=== PATIENT | female | born 1980 | race Hispanic/Latino ===

== ENCOUNTER 2020-06-05 09:28 | Outpatient (CLI) | payer OTHER ==
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
== END 2020-06-05 09:29 | disposition home or self-care (01) ==
LOC: BICMRI 09:28
PROVIDERS: ATTEND Family Medicine
DX: M54.5 Low back pain (principal); M51.36 Other intervertebral disc degeneration, lumbar region
CPT/HCPCS: 72148

== ENCOUNTER 2024-06-24 13:29 | Outpatient (CLI) | payer OTHER | END 2024-06-24 13:30 | disposition home or self-care (01) | LOC: BICRAD 13:29 | PROVIDERS: ATTEND Family Medicine | DX: M25.552 Pain in left hip (principal); M25.551 Pain in right hip; M25.572 Pain in left ankle and joints of left foot; M25.562 Pain in left knee; M79.605 Pain in left leg ==